=== PATIENT | male | born 1945 | race Asian ===

== ENCOUNTER → 2017-10-31 | Outpatient (CLI) | payer MEDICARE, OTHER ==
[~2017-10-31] MED LIST: AMLO10TA4 PO; ASPI-825 PO; HYDR25TA PO; LOVA20 PO; PROP40TA7 PO; REGADENOSON 0.4 MG/5 ML PF SYRINGE IVP ONE; SERT50TA12 PO; SESTAMIBI TC99M/UD ISOTOPE 1 EA INJ INJ ONE; TELM80TA2 PO
[2017-10-31 10:25] VITALS: BP 143/74
[2017-10-31 10:33] VITALS: BP 146/50
== END | disposition home or self-care (01) ==
LOC: CARDMN 08:12
PROVIDERS: ATTEND Internal Medicine Cardiovascular Disease
DX: I25.89 Other forms of chronic ischemic heart disease (principal); I25.5 Ischemic cardiomyopathy
CPT/HCPCS: 78452; 93017; A9500; J2785

== ENCOUNTER 2017-12-01 07:01 | Day surgery (SDC) | payer MEDICARE, OTHER ==
[~2017-12-01] VITALS: Ht 157.5 cm; Wt 65.9 kg
[~2017-12-01 07:01] MED LIST changes: +AMLO-511 PO; -AMLO10TA4 PO; +CHOL50004 PO; -HYDR25TA PO; -PROP40TA7 PO; -REGADENOSON 0.4 MG/5 ML PF SYRINGE IVP ONE; -SESTAMIBI TC99M/UD ISOTOPE 1 EA INJ INJ ONE; +SODIUM CHLORIDE 0.9% 1,000 ML IV ONE
[2017-12-01] MEDS ORDERED: [UNRECOGNIZED DRUG - CODE] PO (07:17)
[2017-12-01 07:30] LABS: BASOPHILS % (AUTO) 2.8 % (0.0-2.0); EOSINOPHILS % (AUTO) 7.2 % (1.0-6.0); LYMPHOCYTES # (AUTO) 1.5 K/uL (1.0-4.8); LYMPHOCYTES % (AUTO) 41.7 % (22.0-44.0); MEAN CORPUSCULAR HEMOGLOBIN 30.8 pg (26.0-34.0); MEAN CORPUSCULAR HGB CONC 34.7 G/dL (31.0-37.0); MEAN CORPUSCULAR VOLUME 89 fL (80-100); MONOCYTES # (AUTO) 0.5 K/uL (0.1-1.0); MONOCYTES % (AUTO) 12.6 % (2.0-9.0); NEUTROPHILS # (AUTO) 1.3 K/uL (1.8-7.7); NEUTROPHILS % (AUTO) 35.7 % (40.0-70.0); PLATELET COUNT (AUTO) 261 K/uL (150-450); RED BLOOD CELL COUNT(AUTO) 5.18 MIL/uL (4.50-5.90); RED CELL DISTRIBUTION WIDTH 13.4 % (11.5-14.5)
[2017-12-01 07:39] LABS: ANION GAP 5 mmol/L (8-16); CALCIUM, TOTAL 8.8 mg/dL (8.8-10.5); CARBON DIOXIDE 31 mmol/L (22-29); CHLORIDE 102 mmol/L (98-107); CREATININE 1.07 mg/dL (0.60-1.30); GLUCOSE,RANDOM 95 mg/dL (70-110); POTASSIUM 3.7 mmol/L (3.5-5.1); SODIUM SERUM 138 mmol/L (136-145); UREA NITROGEN, BLOOD 16 mg/dL (7-18)
[2017-12-01 07:41] LABS: GLOMERULAR FILTR. RATE CALC > 60 mL/min (>60)
[2017-12-01 07:49] LABS: PROTHROMBIN TIME 10.4 SEC (9.4-11.6)
[2017-12-01] MEDS ORDERED: HEPARIN SODIUM 1000 UNITS/NS 1,000 ML ONE (08:31)
[2017-12-01] MEDS ORDERED: SODIUM BICARBONATE 50 MEQ/50 ML VIAL ONE (08:31)
[2017-12-01] MEDS ORDERED: IOHEXOL 300 MG/ML 150 ML VIAL ONE (08:31)
[2017-12-01] MEDS ORDERED: LIDOCAINE HCL/PF 1% 30 ML VIAL ONE (08:31)
[2017-12-01 08:55] VITALS: BP 139/73
[2017-12-01] MEDS ORDERED: HEPARIN SODIUM 2,000 UNITS in HEPARIN SODIUM 1000 UNITS/NS 1,000 ML IARTER ONE (09:31)
[2017-12-01 09:45] VITALS: BP 147/73
[2017-12-01] MEDS ORDERED: LIDOCAINE 1% 30 ML/SOD BICARB 8.4% 4 ML SQ ONE (09:45)
[2017-12-01] MEDS ORDERED: IOHEXOL 300 MG/ML 150 ML VIAL IARTER ONE (09:45)
== END 2017-12-01 13:35 | disposition home or self-care (01) ==
LOC: CATHLAB 07:01
PROVIDERS: ATTEND Internal Medicine Cardiovascular Disease
DX: I25.10 Atherosclerotic heart disease of native coronary artery without angina pectoris (principal); I10 Essential (primary) hypertension; E78.00 Pure hypercholesterolemia, unspecified; M19.90 Unspecified osteoarthritis, unspecified site; M54.9 Dorsalgia, unspecified; Z72.89 Other problems related to lifestyle; Z79.82 Long term (current) use of aspirin; Z79.01 Long term (current) use of anticoagulants; Z79.899 Other long term (current) drug therapy; Z98.890 Other specified postprocedural states; Z87.891 Personal history of nicotine dependence
CPT/HCPCS: 36415; 80048; 85025; 85610; 85730; 93005; 93458; J1644; J3490 ×2; J7030; Q9967

== ENCOUNTER → 2018-03-08 | Outpatient (CLI) | payer MEDICARE, OTHER ==
[~2018-03-08] MED LIST changes: -ASPI-825 PO; -CHOL50004 PO; +IOVERSOL 320 MG/ML 100 ML VIAL ONE; -SODIUM CHLORIDE 0.9% 1,000 ML IV ONE; +SODIUM CHLORIDE 0.9% 100 ML ONE; +[UNRECOGNIZED DRUG - CODE] PO
== END | disposition home or self-care (01) ==
LOC: RADMN 08:39
PROVIDERS: ATTEND Internal Medicine
DX: K57.30 Diverticulosis of large intestine without perforation or abscess without bleeding (principal)
CPT/HCPCS: 74177; J7050; Q9967